=== PATIENT | male | born 1975 | race African-American/Black ===

== ENCOUNTER 2021-02-24 14:47 | Emergency (ER) | payer MEDICAID ==
[~2021-02-24] VITALS: Ht 195.6 cm; Wt 127.0 kg
[2021-02-24 14:54] VITALS: BP 153/82
[2021-02-24] MEDS ORDERED: TC1U15 TP (16:34)
== END 2021-02-24 16:42 | disposition home or self-care (01) ==
LOC: ER 14:47
DX: L40.9 Psoriasis, unspecified (principal)
CPT/HCPCS: 99281

== ENCOUNTER 2021-03-17 08:35 | Emergency (ER) | payer MEDICAID ==
[~2021-03-17] VITALS: Ht 195.6 cm; Wt 125.0 kg
[~2021-03-17 08:35] MED LIST: TC1U15 TP
[2021-03-17 08:38] VITALS: BP 136/58
[2021-03-17] MEDS ORDERED: DIPHENHYDRAMINE 25MG CAPSULE PO ONE (09:00)
[2021-03-17] MEDS ORDERED: ACETAMINOPHEN 650MG/20.3ML UDC PO ONE (09:00)
[2021-03-17] MEDS ORDERED: TC025C15 TP (09:05)
[2021-03-17] MEDS ORDERED: ACETAMINOPHEN 325MG TABLET PO NR (09:23)
== END 2021-03-17 09:38 | disposition home or self-care (01) ==
LOC: ER 08:35
DX: L40.9 Psoriasis, unspecified (principal); G47.30 Sleep apnea, unspecified
CPT/HCPCS: 99283; Q0163

== ENCOUNTER 2021-06-15 17:15 | Emergency (ER) | payer MEDICAID ==
[~2021-06-15] VITALS: Ht 195.6 cm; Wt 126.0 kg
[~2021-06-15 17:15] MED LIST changes: +TC025C15 TP
[2021-06-15 19:14] VITALS: BP 126/63
== END 2021-06-15 19:15 | disposition home or self-care (01) ==
LOC: ER 17:15
DX: U07.1 COVID-19 (principal); J06.9 Acute upper respiratory infection, unspecified; R05.9 Cough, unspecified; R09.81 Nasal congestion; F17.200 Nicotine dependence, unspecified, uncomplicated; Z79.899 Other long term (current) drug therapy
CPT/HCPCS: 87426; 99283

== ENCOUNTER 2023-05-14 02:49 | Emergency (ER) | payer MEDICAID ==
[~2023-05-14] VITALS: Ht 195.6 cm; Wt 130.0 kg
[2023-05-14 03:08] VITALS: O2SAT 100
[2023-05-14] MEDS ORDERED: LIDOCAINE HCL 1% 20ML VIAL (Pyxis) INJ INFIL ONE (05:45)
[2023-05-14] MEDS ORDERED: TRIA15CR61 TP (06:57)
[2023-05-14] MEDS ORDERED: NAPR-681 MT (06:57)
[2023-05-14] MEDS ORDERED: AMOX1TAB16 MT (06:57)
[2023-05-14] MEDS ORDERED: BACITRACIN ZINC OINT UDPKT TOP ONE (07:00)
[2023-05-14] MEDS ORDERED: LIDOCAINE HCL 1% 20ML VIAL (Pyxis) INJ INFIL NR (07:00)
[2023-05-14] MEDS ORDERED: BACITRACIN ZINC OINT UDPKT TOP NR (07:00)
[2023-05-14 07:07] VITALS: BP 168/90; PULSE 70; RESP 19; TEMP 98.2
== END 2023-05-14 07:10 | disposition home or self-care (01) ==
LOC: ER 02:49
DX: L03.011 Cellulitis of right finger (principal); R21 Rash and other nonspecific skin eruption; Z79.899 Other long term (current) drug therapy
CPT/HCPCS: 99283; Z7610 ×2

== ENCOUNTER 2023-12-05 17:59 | Emergency (ER) | payer MEDICAID ==
[~2023-12-05] VITALS: Ht 195.6 cm; Wt 125.0 kg
[~2023-12-05 17:59] MED LIST changes: +AMOX1TAB16 MT; +NAPR-681 MT; +TRIA15CR61 TP
[2023-12-05 18:56] VITALS: O2SAT 99
[2023-12-05] MEDS ORDERED: CEPH500T MT (19:33)
[2023-12-05] MEDS ORDERED: CLOT15CR5 TP (19:33)
[2023-12-05] MEDS ORDERED: MUPI15CR11 TP (19:34)
[2023-12-05 20:13] VITALS: BP 130/85; PULSE 60; RESP 20; TEMP 98.4
== END 2023-12-05 20:14 | disposition home or self-care (01) ==
LOC: ER 17:59
DX: R21 Rash and other nonspecific skin eruption (principal)
CPT/HCPCS: 99283

== ENCOUNTER 2024-03-08 04:09 | Emergency (ER) | payer MEDICAID ==
[~2024-03-08] VITALS: Ht 195.6 cm; Wt 125.0 kg
[~2024-03-08 04:09] MED LIST changes: +CEPH500T MT; +CLOT15CR5 TP; +MUPI15CR11 TP
[2024-03-08 04:11] VITALS: O2SAT 100
[2024-03-08 04:14] VITALS: BP 139/89; PULSE 70; RESP 20; TEMP 97.9; O2SAT 100
[2024-03-08] MEDS ORDERED: ONDA-239 PO (05:16)
[2024-03-08] MEDS ORDERED: DICY20TA2 MT (05:16)
[2024-03-08] MEDS: DICYCLOMINE HCL 10MG CAPSULE PO STA (05:35)
[2024-03-08] MEDS: ONDANSETRON 4MG ODT PO ONE (05:35)
== END 2024-03-08 05:37 | disposition home or self-care (01) ==
LOC: ER 04:09
DX: K59.00 Constipation, unspecified (principal); Z79.899 Other long term (current) drug therapy
CPT/HCPCS: 99283; Q0162

== ENCOUNTER 2024-06-23 20:50 | Emergency (ER) | payer MEDICAID ==
[~2024-06-23] VITALS: Ht 195.6 cm; Wt 125.0 kg
[~2024-06-23 20:50] MED LIST changes: +DICY20TA2 MT; +ONDA-239 PO
[2024-06-23 21:07] VITALS: O2SAT 99
[2024-06-23] MEDS ORDERED: TRIA15CR61 TP (22:47)
[2024-06-23] MEDS ORDERED: DOXY100T28 MT (22:47)
[2024-06-23] MEDS ORDERED: CETI10TA6 MT (22:47)
[2024-06-23 23:05] VITALS: BP 153/85; PULSE 84; RESP 18; TEMP 98.3; O2SAT 100
== END 2024-06-23 23:13 | disposition home or self-care (01) ==
LOC: ER 20:50
DX: L20.9 Atopic dermatitis, unspecified (principal); L73.9 Follicular disorder, unspecified; Z79.1 Long term (current) use of non-steroidal anti-inflammatories (NSAID)
CPT/HCPCS: 99283

== ENCOUNTER 2024-08-02 05:33 | Emergency (ER) | payer MEDICAID ==
[~2024-08-02] VITALS: Ht 182.9 cm; Wt 240.0 kg
[~2024-08-02 05:33] MED LIST changes: +CETI10TA6 MT; +DOXY100T28 MT
[2024-08-02 05:37] VITALS: O2SAT 99
[2024-08-02] MEDS: TETANUS, DIPHTHERIA, PERTUSSIS VAC/PF 0.5ML (>10YR OLD) IM ONE (06:00)
[2024-08-02] MEDS: BACITRACIN ZINC OINT UDPKT TOP ONE (06:00)
[2024-08-02] MEDS: LIDOCAINE HCL/EPINEPHRINE 1%-EPI 1:100,000 20ML VIAL INFIL ONE (06:00)
[2024-08-02 07:50] LABS: BASOPHILS % 0.5 % (0.0-2.0); EOSINOPHILS % 0.1 % (0.0-5.0); HEMATOCRIT. 36.2 % (42.0-52.0); HEMOGLOBIN. 12.2 g/dL (14.0-18.0); LYMPHOCYTES % 7.1 % (20.0-50.0); MEAN CORPUSCULAR HEMOGLOBIN 29.8 pg (28.0-32.0); MEAN CORPUSCULAR HGB CONC 33.6 g/dL (31.0-37.0); MEAN CORPUSCULAR VOLUME 88.6 fL (80.0-94.0); MEAN PLATELET VOLUME 8.3 fl (7.4-10.4); MONOCYTES % 7.1 % (2.0-8.0); NEUTROPHILS % 85.2 % (40.0-76.0); PLATELET 249 x1000/uL (130-400); RED BLOOD CELL COUNT 4.09 mill/uL (4.7-6.1); RED CELL DISTRIBUTION WIDTH 13.2 % (11.6-14.6); WHITE BLOOD COUNT 9.7 x1000/uL (4.5-11.0)
[2024-08-02 07:59] LABS: PROTHROMBIN TIME 10.9 sec (9.6-11.0)
[2024-08-02 08:05] LABS: CHLORIDE 104 mEq/L (98-107); POTASSIUM 3.9 mEq/L (3.5-5.1); SODIUM 136 mEq/L (136-145)
[2024-08-02 08:06] LABS: CALCIUM 8.9 mg/dL (8.7-10.4); CARBON DIOXIDE 24 mEq/L (21-32)
[2024-08-02 08:11] LABS: CREATININE 1.6 mg/dL (0.6-1.3); GLUCOSE 216 mg/dL (70-105); UREA NITROGEN BLOOD 14 mg/dL (9-23)
[2024-08-02 08:13] LABS: ACETAMINOPHEN 3 ug/mL (10-30)
[2024-08-02 09:30] LABS: ETHANOL BLOOD < 10 mg/dL (<10)
[2024-08-02 10:25] LABS: T4 FREE 1.3 ng/dL (0.89-1.76)
[2024-08-02 10:26] LABS: THYROID STIMULATING HORMONE 0.63 uIU/mL (0.55-4.78)
[2024-08-02] MEDS: LIDOCAINE HCL/EPINEPHRINE 1%-EPI 1:100,000 20ML VIAL INFIL NR (10:45)
[2024-08-02] MEDS ORDERED: AMOX1TAB16 MT (11:39)
[2024-08-02 16:48] LABS: CLARITY URINE CLEAR (CLEAR); COLOR URINE YELLOW (YELLOW); GLUCOSE URINE NEGATIVE (NEGATIVE); KETONES URINE 1+ (NEGATIVE); LEUKOCYTE ESTERASE URINE NEGATIVE (NEGATIVE); NITRITE URINE NEGATIVE (NEGATIVE); OCCULT BLOOD URINE NEGATIVE (NEGATIVE); PH URINE 5.5 (4.5-8.0); PROTEIN URINE 1+ (NEGATIVE); SPECIFIC GRAVITY URINE 1.019 (1.005-1.030)
[2024-08-02 17:11] LABS: *AMPHETAMINES SCREEN URINE NEGATIVE (NEGATIVE); *BARBITURATES SCREEN URINE NEGATIVE (NEGATIVE); *BENZODIAZEPINES SCREEN URINE NEGATIVE (NEGATIVE); *COCAINE SCREEN URINE NEGATIVE (NEGATIVE)
[2024-08-02 17:12] LABS: CANNABINOID URINE SCREEN PRESUMPTIVE POSITIVE (NEGATIVE); ECSTASY MDMA SCREEN URINE NEGATIVE (NEGATIVE); METHADONE URINE SCREEN NEGATIVE (NEGATIVE); OPIATES URINE SCREEN NEGATIVE (NEGATIVE); PHENCYCLIDINE URINE SCREEN NEGATIVE (NEGATIVE)
[2024-08-02] MEDS: AMOXICILLIN/POTASSIUM CLAVULANATE 875/125MG TAB PO SCH (18:10)
[2024-08-02 18:59] LABS: BACTERIA URINE 1+; RBC URINE NONE SEEN /hpf (0-2); SQUAMOUS EPITHELIAL CELL URINE RARE /lpf (RARE/1+); WBC URINE 0-2 /hpf (0-2)
[2024-08-03] MEDS: IBUPROFEN 600MG TABLET PO ONE (01:50)
[2024-08-03] MEDS: HYDROCODONE/ACETAMINOPHEN 10/325MG TABLET PO ONE (17:16)
[2024-08-04] MEDS: ACETAMINOPHEN 325MG TABLET PO ONE (10:43)
[2024-08-05] MEDS: ACETAMINOPHEN 325MG TABLET PO ONE (05:45)
[2024-08-05 06:11] VITALS: BP 148/84; PULSE 89; RESP 15; TEMP 36.8; O2SAT 99
== END 2024-08-05 08:46 | disposition home or self-care (01) ==
LOC: ER 05:33
DX: S02.85XA Fracture of orbit, unspecified, initial encounter for closed fracture (principal); S01.511A Laceration without foreign body of lip, initial encounter; R45.851 Suicidal ideations; S10.91XA Abrasion of unspecified part of neck, initial encounter; Z79.899 Other long term (current) drug therapy; Z98.890 Other specified postprocedural states; Z20.822 Contact with and (suspected) exposure to COVID-19; V89.2XXA Person injured in unspecified motor-vehicle accident, traffic, initial encounter; Y93.89 Activity, other specified; Y92.89 Other specified places as the place of occurrence of the external cause; Y99.8 Other external cause status
CPT/HCPCS: 80305; 80048; 81003; 80307; 80329; 80320; 84439; 84443; 85025; 85610; 36415; 70450; 70486; 70490; 72125; 90715; 12011; 90471; 99285; 87426; 84481; J2004; G0480

== ENCOUNTER 2024-08-29 01:41 | Emergency (ER) | payer MEDICAID ==
[~2024-08-29] VITALS: Ht 195.6 cm; Wt 124.0 kg
[2024-08-29 01:49] VITALS: O2SAT 100
[2024-08-29] MEDS ORDERED: MUPI1OIN4 TP (03:07)
[2024-08-29] MEDS ORDERED: AMOX1TAB16 MT (03:07)
[2024-08-29 03:42] VITALS: BP 140/69; PULSE 69; RESP 18; TEMP 36.8; O2SAT 100
== END 2024-08-29 03:46 | disposition home or self-care (01) ==
LOC: ER 01:41
DX: K13.0 Diseases of lips (principal)
CPT/HCPCS: 99283